=== PATIENT | male | born 1940 | race Caucasian/White ===

== ENCOUNTER 2021-11-21 14:09 | Outpatient (RCR) | payer MEDICARE, SELFPAY ==
[2021-11-21 15:09] LABS: Alanine Aminotransferase 20 U/L (6-50); Albumin Level 4.2 g/dL (3.5-5.1); Alkaline Phosphatase 76 U/L (38-126); Aspartate Amino Transferase 25 U/L (17-59); Bilirubin,Total 0.6 mg/dL (0.2-1.3)
== END 2022-02-19 23:59 | disposition home or self-care (01) ==
LOC: ANHLAB 14:09
PROVIDERS: PCP Internal Medicine; Visit Provider Dermatology
DX: Z51.81 Encounter for therapeutic drug level monitoring (principal); Z79.899 Other long term (current) drug therapy
CPT/HCPCS: 36415; 80076

== ENCOUNTER 2022-12-11 10:40 | Outpatient (CLI) | payer MEDICARE, SELFPAY ==
[2022-12-11 11:06] LABS: Basophils Absolute Auto 0.1 K/mm3 (0.0-0.1); Basophils Percent Auto 1.5 % (0.2-1.2); Eosinophils Absolute Auto 0.5 K/mm3 (0-0.3); Hematocrit 45.7 % (42.0-52.0); Hemoglobin 15.3 g/dL (14.0-18.0); Immature Granulocyte Absolute 0.01 K/mm3 (0.00-0.031); Immature Granulocyte Percent A 0.2 % (0-0.5); Lymphocytes Absolute Auto 1.37 K/mm3 (0.9-3.2); Lymphocytes Percent Auto 22.7 % (18.3-44.2); Mean Corpuscular HGB Conc 33.5 g/dl (32-36); Mean Corpuscular Hemoglobin 30.7 pg (26-34); Mean Corpuscular Volume 91.8 fl (80-100); Mean Platelet Volume 10.1 fl (7.4-10.4); Monocytes Absolute Auto 0.7 K/mm3 (0.1-0.6); Monocytes Percent Auto 11.1 % (2.6-8.5); Neutrophils Absolute Auto 3.4 K/mm3 (1.3-6.7); Neutrophils Percent Auto 55.5 % (45.5-73.1); Platelet Count Result 279 k/mm3 (150-375); Red Blood Count 4.98 M/mm3 (4.6-6.20); Red Cell Distribution Width 13.4 % (11.5-14.5)
[2022-12-11 11:23] LABS: Alanine Aminotransferase 17 U/L (6-50); Alkaline Phosphatase 60 U/L (38-126); Anion Gap 8 mmol/L (8-16); Aspartate Amino Transferase 25 U/L (17-59); Blood Urea Nitrogen 22 mg/dL (9-20); Calcium 8.5 mg/dL (8.4-10.2); Carbon Dioxide 24 mmol/L (22-30); Chloride 104 mmol/L (98-107); Cholesterol 104 mg/dL (0-200); Estimated Glomerular Filt Rate 58; Glucose 91 mg/dL (65-110); HDL Direct 31 mg/dL; Potassium 4.2 mmol/L (3.4-5.0); Sodium 136 mmol/L (137-145); Triglycerides 93 mg/dL (<150)
[2022-12-11 11:34] LABS: LDL Cholesterol Direct 58 mg/dL
[2022-12-11 11:36] LABS: Free T4 Free Thyroxine 1.31 ng/mL (0.78-2.19); Vitamin D 25 Hydroxy 38.8 ng/mL
[2022-12-11 11:52] LABS: Prostate Specific Antigen 4.9 ng/mL (< OR = 4.0); Thyroid Stimulating Hormone 0.247 uIU/mL (0.465-4.680)
[2022-12-11 12:32] LABS: Folic Acid > 20.0 ng/mL (2.76->20)
== END 2022-12-11 10:41 | disposition home or self-care (01) ==
LOC: ANHLAB 10:42
PROVIDERS: PCP Internal Medicine; Visit Provider Physician Assistant
DX: E78.5 Hyperlipidemia, unspecified (principal); Z12.5 Encounter for screening for malignant neoplasm of prostate; E03.9 Hypothyroidism, unspecified; E55.9 Vitamin D deficiency, unspecified; R53.83 Other fatigue
CPT/HCPCS: 36415; 80053; 80061; 82306; 82607; 82746; 84153; 84439; 84443; 85025; G0103

== ENCOUNTER 2023-06-03 15:12 | Outpatient (CLI) | payer MEDICARE, SELFPAY ==
--- NOTE | ~2023-06-03 | XR_ITS ---
EXAMINATION: XR foot LT min 3V, XR ankle LT 2V DATE: 06/03/2023 15:43 EXAMINATION: XR foot LT min 3V, XR ankle LT 2V DATE: 06/03/2023 15:43 INDICATION: Left foot pain TECHNIQUE: 1. Anteroposterior, mortise, additional oblique and lateral view of the left ankle were obtained. 2. Dorsoplantar, two oblique and lateral views of the left foot were obtained. COMPARISON: None. FINDINGS: Alignment of the foot and ankle is normal. No fracture. Polyarticular osteoarthritis, moderate severi ty at the first metatarsophalangeal joint and mild at the ankle and multiple additional joints in the mid and forefoot. Bunion with hypertrophic and prominent cystic change at the medial head of the fir st metatarsal. Small plantar calcaneal spur. Soft tissue swelling about the lateral malleolus and ove r the dorsum of the foot. No definitive ankle joint effusion. IMPRESSION: 1. 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 2. Bunion with cystic and hypertrophic change at the medial head of the first metatarsal. 2. Small plantar calcaneal spur. Reviewed, dictated and finalized at location A. IMPRESSION: 1. 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 2. Bunion with cystic and hypertrophic change at the medial head of the first m etatarsal. 2. Small plantar calcaneal spur.
[2023-06-03 16:14] LABS: Uric Acid 8.3 mg/dL (3.5-8.5)
== END 2023-06-03 15:13 | disposition home or self-care (01) ==
LOC: ANHLAB 15:15
PROVIDERS: PCP Internal Medicine; Visit Provider Internal Medicine
DX: M77.32 Calcaneal spur, left foot (principal); M19.072 Primary osteoarthritis, left ankle and foot
CPT/HCPCS: 36415; 73600; 73630; 84550

== ENCOUNTER 2023-06-05 11:56 | Emergency (ER) | payer MEDICARE, SELFPAY ==
--- NOTE | ~2023-06-05 | US_ITS ---
EXAMINATION: US venous doppler [facility] DATE: 06/05/2023 13:40 INDICATION: Left lower limb pain and swelling TECHNIQUE: Grayscale ultrasound images without and with compression and Doppler ultrasound images of the left lower extremity veins were obtained. COMPARISON: None. FINDINGS: The visualized portions of left common femoral vein, profunda (deep) femoral vein, femoral vein, popl iteal vein, peroneal veins, posterior tibial veins, gastrocnemius vein and greater saphenous vein out flow are patent. IMPRESSION: 1. No deep venous thrombosis in the left lower limb. Reviewed, dictated and finalized at location A.
[2023-06-05 12:04] VITALS: BP 134/71; PULSE 68; RESP 15; TEMP 36.3; O2SAT 98
--- NOTE | 2023-06-05 12:58 | ED.EXTPRO ---
HPI - Extremity Problem General Chief complaint: Extremity Problem,Nontraumatic Stated complaint: Foot cellulitis? Time Seen by Provider: 06/05/23 12:13 History of Present Illness HPI Narrative: 83-year-old male present to the emergency department for evaluation of redness and swelling and left foot pain. Patient reports that the symptoms started spontaneously on Thursday. Patient denies any falls or injuries. Patient states the pain is worsened with weight-bearing. Patient did have follow-up his primary care physician on Thursday and did have outpatient x-rays of foot and ankle. Patient states that symptoms have been improving since Thursday. Patient has no prior history of DVT or diabetes. Related Data Home Medications Medication Instructions Recorded Confirmed aspirin 81 mg tablet,delayed 81 mg PO DAILY 05/27/19 05/28/22 release (Adult Low Dose Aspirin) atorvastatin 20 mg tablet 20 mg PO DAILY 05/27/19 05/28/22 Allergies Allergy/AdvReac Type Severity Reaction Status Date / Time citalopram Allergy Mild constipation, Verified 06/05/23 12:[address] enalapril Allergy Mild Cough Verified 06/05/23 12:03 Review of Systems Review of Systems: All systems reviewed & are unremarkable except as noted in HPI and below PMFSH Family History Family History Mother Patient's mother is Cancer Father Patient's father is Other Family history of cardiovascular disease Family history of hearing loss Family history of obesity Social History Social History (Updated 05/28/22 @ 13:17 by Bartolo Kumar MA) Smoking packs per day: 2 Smoking cigarettes per day: 40.0 Years smoked: 40 Smoking pack-years: 80.00 Smoking status: Former smoker Tobacco type: cigarettes Second hand tobacco smoke exposure: No Smoking end date: 02/17/08 Alcohol intake: never Lack of Transportation: No Lack of Food: Never True Current Housing: I Have Housing Concerned About Future Housing: No Difficulty Paying Gas/Electric Bills: No Difficulty Paying for Meds: No Currently Unemployed: No Education: High School Diploma/GED Difficulty w/ Childcare or Family Care: No Exam Narrative: APPEARANCE: Well appearing, no pain, no distress, well-nourished. HEAD: normocephalic, atraumatic. EYES: PERRLA/EOMI, conjunctivae clear. NOSE: Normal no drainage EARS:TMS clear with good light reflex. THROAT: Pharynx clear, no exudate. NECK: Supple. No adenopathy, no masses. RESPIRATORY: Airway patent, respirations nonlabored. Clear to auscultation bilaterally, no rales, rhonchi, wheezing. CARDIOVASCULAR: Regular rate and rhythm without murmurs rubs or gallops. ABDOMINAL: Soft, nontender, nondistended, normal bowel sounds MUSCULOSKELETAL: Erythema and edema of left foot with no evidence of skin breakdown NEURO: Alert. Cranial nerves II through XII intact. Good gait. Good coordination SKIN: Warm, dry. Normal Color Course Course Emergency Course: Patient was treated for cellulitis Vital Signs Vital signs: Vital Signs Temperature 97.4 F L 06/05/23 12:04 Pulse Rate 68 06/05/23 12:04 Respiratory Rate 15 06/05/23 12:04 Blood Pressure 134/71 06/05/23 12:04 Pulse Oximetry 98 06/05/23 12:04 Oxygen Delivery Room Air 06/05/23 12:04 Temperature 97.4 F L 06/05/23 12:04 Pulse Rate 68 06/05/23 12:04 Respiratory Rate 15 06/05/23 12:04 Blood Pressure 134/71 06/05/23 12:04 Pulse Oximetry 98 06/05/23 12:04 Oxygen Delivery Room Air 06/05/23 12:04 MDM - Extremity (Nontraumatic) MDM Narrative Medical decision making narrative: 83-year-old male presenting to the ED for evaluation for swelling of his left foot. Ultrasound was ordered to evaluate for DVT. Patient reports he had x-rays of left foot and ankle on Thursday and showed arthritis but no fracture dislocation. Ultrasound was negative for DVT. Patient is being treated for a cellulitis. Patient will be started on Keflex. Patient was started on Keflex in the emergency department. Patient was encouraged to have close follow-up with his primary care physician. All questions concerns were addressed. Differential Diagnosis Differential diagnosis: Likely cellulitis, superficial thrombophlebitis, lower extremity edema and deep vein thrombosis of lower extremity Discharge Plan Discharge Clinical Impression: Cellulitis Patient Disposition: Home, Self-Care Condition: Stable Instructions: Antibiotic Form, Cellulitis (ED) Additional Instructions: Antibiotic as directed until completed. Have close follow-up with your primary care physician for wound check. If you have any worsening symptoms then please call or return to the emergency department. Prescriptions: New cephalexin 500 mg capsule 500 mg PO Q8H 7 Days Qty: 21 0RF No Action aspirin [Adult Low Dose Aspirin] 81 mg tablet,delayed release (DR/EC) 81 mg PO DAILY atorvastatin 20 mg tablet 20 mg PO DAILY omeprazole 20 mg capsule,delayed release(DR/EC) 20 mg PO DAILY Qty: 90 1RF Rx Instructions: Take before dinner felodipine 5 mg tablet extended release 24 hr 5 mg PO DAILY Qty: 90 1RF levothyroxine 137 mcg tablet 137 mcg PO DAILY Qty: 90 0RF Follow-up/Referrals: Ruddy Ramsey DO [Primary Care Provider] -
[2023-06-05] MEDS: CEPHALEXIN 500 MG CAPSULE PO (15:03)
== END 2023-06-05 15:11 | disposition home or self-care (01) ==
PROVIDERS: Emergency Provider Emergency Medicine; PCP Internal Medicine
DX: L03.116 Cellulitis of left lower limb (principal); Z79.82 Long term (current) use of aspirin; Z87.891 Personal history of nicotine dependence
CPT/HCPCS: 93971; 99284; A9270

== ENCOUNTER 2024-04-06 14:52 | Outpatient (CLI) | payer MEDICARE, SELFPAY ==
--- OUTSIDE RECORDS SUMMARY | 2024-04-06 15:01 | XMS_ITS | Referral Summary ---
Author Organization [facility] Address [address] [place] [address] Care Team Providers Care Source Inspector Name Role Phone Ruddy Ramsey MD Primary Care Provider [phone] Allergies No known active allergies Medications aspirin (ASPIR-81) 81 mg tablet take 1 tablet by oral route every day 0 0 7 Active felodipine (PLENDIL) 5 mg 24 hr tablet 0 Active omeprazole (PriLOSEC) 20 mg capsule TAKE 1 CAPSULE BY MOUTH DAILY BEFORE DINNER 2 Active Synthroid 137 mcg tablet Take 1 tablet (137 mcg total) by mouth oven worker before breakfast 4 Active atorvastatin (LIPITOR) 20 mg tabletIndicatio ns:Hyperlipidem ia LDL goal <70 TAKE 1 TABLET DAILY 90 tablet 3 4 Active Active Problems Problem Noted Date Diagnosed Date Other fatigue 10/14/2018 Obesity (BMI 35.0-39.9 without comorbidity) 03/19 Lipid screening 07/10/2017 Hyperlipidemia LDL goal <70 07/10/2017 Coronary artery disease of n ative artery of [place] heart with stable angina pectoris 09/05/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 09/05/2016 Simple obesity 06/27/2016 Overview (07/11/2016): Non morbid obesity due to excess calories Abnormal liver function tests 06/27/2016 Overview (07/11/2016): Elevated liver function tests Essential (primary) hypertension 06/27/2016 Overview (07/11/2016): Essential hypertension Social History Tobacco Use Types Packs/Day Years Used Date Smoking Tobacco: Former Smokeless Tobacco: Never Tobacco Cessation:Counseling Given: Not Answered Alcohol Use Standard Drinks/Week Comments No 0 (1 standard drink = 0.6 oz pur e alcohol) Personal Safety Answer Date Recorded Getting School Help Needed Not on file 03/06 Sex and Gender Information Value Date Recorded Sex Assigned at Not on file 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 Gender Identity Not on file Sexual Orientation Not on file Last Filed Vital Signs Vital Sign Reading Time Taken Comments Blood Pressure 130/78 09/07/2023 7:57 AM CDT Pulse 66 09/07/2023 7:57 AM CDT Temperature 36.4 C (97.5 F) 05/04/2020 12:50 PM CDT Respiratory Rate 15 12/21/2020 1:56 PM CDT Oxygen Saturation 96% 09/07/2023 7:57 AM CDT Inhaled Oxygen Concentration - - Weight 107 kg (236 lb) 09/07/2023 7:57 AM CDT Height 180.3 cm (5' 11 ) 09/07/2023 7:57 AM CDT Body Mass Index 32.92 09/07/2023 7:57 AM CDT Plan of Treatment Not on file Procedures Procedure Name Priority Date/Time Associated Diagnosis Comments CT ABDOMEN PELVIS W CONTRAST Routine 07/19/2016 6:55 PM CDT from Last 3 Months or Most Recently Relevant to Health Maintenance Results * CT Abdomen Pelvis W Contrast (07/19/2016 6:55 PM CDT) Anatomical Region Laterality Modality Body N/A Computed Tomogra phy 07/19/2016 6:55 PM CDT Narrative 07/19/2016 6:55 PM CDT DATE OF EXAM: Jul 19 2016 1:55PM Acc#: [id number] ECT 0365 - CT Abd/Pel W PO Contrast only DIAGNOSIS: ACUTE PANCREATITIS/ABDOMINAL PAIN CLINICAL HISTORY: no bowel movement times 4-5 days with hypoactive bowel sounds RESULT: EXAM: CT abdomen and pelvis without contrast DATE: 07/19/2016 1:55 PM CLINICAL HISTORY: Constipation with lack of bowel movement for 4 to 5 days TECHNIQUE: Computed tomographic images of the abdomen and pelvis were obtained in the axial plane without the administration of contrast. Coronal and sagittal reformatted images were performed. No prior study is available for comparison. FINDINGS: Small right and moderate left pleural effusions cause compressive atelectasis of the visible portions of the lung bases. A moderate pericardial effusion is present. Hypodense bilateral renal lesions are of water density, but cannot be characterized on this noncontrast exam. The liver, gallbladder, spleen, pancreas and adrenal glands are normal for a noncontrast exam. Stool is present in the ascending, transverse and descending colon. The sigmoid colon and rectum are decompressed. There is no bowel loop dilatation or bowel wall thickening. An appendix is is not deftly identified. There are no right lower quadrant inflammatory changes There is no free fluid or air. Atherosclerotic calcifications are present in the sanchez of the aorta and iliac arteries. There is no abdominal or pelvic adenopathy. The bladder is normal. The prostate is normal. A tiny fat-containing umbilical hernia is present. Multilevel degenerative disc disease in the visible portion of the spine is most severe in the mid and lower lumbar spine. IMPRESSION: 1. No evidence of bowel obstruction. 2. Hypodense bilateral renal lesions cannot be characterized on this noncontrast exam. 3. Small right and moderate left pleural effusions and moderate pericardial effusion. Electronically signed by: Sheri Gordon M.D. LINUX PROGRAMMER: [email or web address] TRANSCRIBE DATE/TIME: Jul 19 2016 4:25P RADIOLOGIST: SHERI GORDON M.D. READ ON: Jul 19 2016 4:29P ORDERING DR: MARGARITA SHEN M.D. THIS DOCUMENT HAS BEEN ELECTRONICALLY SIGNED BY: SHERI GORDON M.D. ON: Jul 19 2016 4:25P Attending: LASHAY CRUZ Requesting: MARGARITA SHEN Requesting Attending Attending ID: [id number] Requesting ID: [id number] Report To 1 ID: [id number] Report To 1 Name: LASHAY CRUZ Report To 1 FAX: [phone] Report To 2 ID: Report To 2 Name: , Report To 2 FAX: -- NextGen Order #: Procedure Note Miscellaneous, Not In File / Provider, MD Alicia - 07/19/2016 DATE OF EXAM: Jul 19 2016 1:55PM Acc#: [id number] ECT 0365 - CT Abd/Pel W PO Contrast only DIAGNOSIS: ACUTE PANCREATITIS/ABDOMINAL PAIN CLINICAL HISTORY: no bowel movement times 4-5 days with hypoactive bowel sounds RESULT: EXAM: CT abdomen and pelvis without contrast DATE: 07/19/2016 1:55 PM CLINICAL HISTORY: Constipation with lack of bowel movement for 4 to 5 days TECHNIQUE: Computed tomographic images of the abdomen and pelvis were obtained in the axial plane without the administration of contrast. Coronal and sagittal reformatted images were performed. No prior study is available for comparison. FINDINGS: Small right and moderate left pleural effusions cause compressive atelectasis of the visible portions of the lung bases. A moderate pericardial effusion is present. Hypodense bilateral renal lesions are of water density, but cannot be characterized on this noncontrast exam. The liver, gallbladder, spleen, pancreas and adrenal glands are normal for a noncontrast exam. Stool is present in the ascending, transverse and descending colon. The sigmoid colon and rectum are decompressed. There is no bowel loop dilatation or bowel wall thickening. An appendix is is not deftly identified. There are no right lower quadrant inflammatory changes There is no free fluid or air. Atherosclerotic calcifications are present in the sanchez of the aorta and iliac arteries. There is no abdominal or pelvic adenopathy. The bladder is normal. The prostate is normal. A tiny fat-containing umbilical hernia is present. Multilevel degenerative disc disease in the visible portion of the spine is most severe in the mid and lower lumbar spine. IMPRESSION: 1. No evidence of bowel obstruction. 2. Hypodense bilateral renal lesions cannot be characterized on this noncontrast exam. 3. Small right and moderate left pleural effusions and moderate pericardial effusion. Electronically signed by: Sheri Gordon M.D. LINUX PROGRAMMER: [email or web address] TRANSCRIBE DATE/TIME: Jul 19 2016 4:25P RADIOLOGIST: SHERI GORDON M.D. READ ON: Jul 19 2016 4:29P ORDERING DR: MARGARITA SHEN M.D. THIS DOCUMENT HAS BEEN ELECTRONICALLY SIGNED BY: SHERI GORDON M.D. ON: Jul 19 2016 4:25P Attending: LASHAY CRUZ Requesting: MARGARITA SHEN Requesting Attending Attending ID: [id number] Requesting ID: [id number] Report To 1 ID: [id number] Report To 1 Name: ROSSY SWANN PAMLASHAY Report To 1 FAX: [phone] Report To 2 ID: Report To 2 Name: , Report To 2 FAX: -- NextGen Order #: us Not In File Miscellaneous IMG CT PROCEDURES Ellen l Result from Last 3 Months or Most Recently Relevant to Health Maintenance Insurance MEDICARE [facility] SENIOR SUPPLEMENT MEDICARE [facility] MEDICARE [employer] SENIOR SUPPLEMENT Care Teams Source Inspector Relationship Specialty Start Date End Date Ruddy Ramsey MD [address] [facility] [address] [place] [id number] PCP - General 08/11/12
--- OUTSIDE RECORDS SUMMARY | 2024-04-06 15:01 | XMS_ITS | Encounter Summary ---
Author Organization [facility] Address [address] [address] Care Team Providers Care Belt Machine Operator Name Role Phone Ruddy Ramsey MD Primary Care Provider [phone]- [phone] Encounter Details Date Type Department Care Team (Late st Contact Info) Description 06/27/2016 Orders Only [facility] ProviderAlicia MD [address] [place] [address] Social History Tobacco Use Types Packs/Day Years Used Date Smoking Tobacco: Former Cigarettes Q uit: 02/16/2007 Alcohol Use Standard Drinks/Week Comments No 0 (1 standard drink = 0.6 oz pur e alcohol) Sex and Gender Information Value Date Recorded Sex Assigned at Not on file 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 Historical Provider [facility] GABRIEL MAYER Final Result documented in this encounter Visit Diagnoses Not on filedocumented in this encounter Care Teams Belt Machine Operator Relationship Specialty Start Date End Date Ruddy Ramsey MD [address] [place], [place] [id number] PCP - General 08/11/12 documented as of this encounter
--- OUTSIDE RECORDS SUMMARY | 2024-04-06 15:01 | XMS_ITS | Referral Summary ---
Author Organization [facility] Address [address] [place] [address] Care Team Providers Care Caseworker Intake Name Role Phone Unavailable Primary Care Provider Unavailabl e Source Comments [facility],non-owned Affiliates and Associated Physician Practices is amultiple site organization consisting of ambulatory clinics and hospital sitesin [place], [place], [place] and [place]. This disclosure is being madepursuant to the Care Everywhere program and may not contain all information available regarding this patient. Last updated 17.[facility] Medications * Be aware that medications may not be up to date on this document. Alwaysverify current medications with the patient. Medication Sig Dispensed Refills Start Date End Date Status ergocalciferol (DRISDOL) 62622 UNITS capsule Take 50,000 Units by mouth every 30 days. 06/27/2016 Active pantoprazole (PROTONIX) 40 MG packet 40 mg by Feeding route DAILY. 06/27/2016 Active felodipine CR 24hr (PLENDIL) 5 MG tablet Take 5 mg by mouth DAILY. 06/27/2016 Active aspirin (ASPIRIN) 81 MG chew tablet Take 81 mg by mouth DAILY. 06/27/2016 Active levothyroxine (SYNTHROID) 150 MCG tablet Take 150 mcg by mouth DAILY. 06/27/2016 Active Social History Tobacco Use Types Packs/Day Years Used Date Smoking Tobacco: Never Assessed Sex and Gender Information Value Date Recorded Sex Assigned at Not on file Gender Identity Not on file Sexual Orientation Not on file Last Filed Vital Signs Vital Sign Reading Time Taken Comments Blood Pressure 131/113 06/28/2016 12:30 AM CDT Pulse 56 06/28/2016 12:30 AM CDT Temperature 36.6 C (97.9 F) 06/27/2016 4:57 PM CDT Respiratory Rate 15 06/28/2016 12:30 AM CDT Oxygen Saturation 100% 06/28/2016 12:30 AM CDT Inhaled Oxygen Concentration - - Weight 122.5 kg (270 lb) 06/27/2016 4:57 PM CDT Height 180.3 cm (5' 11 ) 06/27/2016 4:57 PM CDT Body Mass Index 37.66 06/27/2016 4:57 PM CDT Plan of Treatment Not on file
--- OUTSIDE RECORDS SUMMARY | 2024-04-06 15:01 | XMS_ITS | Patient Health Summary ---
Author Organization [facility] Address [address] [place] [address] Care Team Providers Care Maintenance Manager Name Role Phone Unavailable Primary Care Provider Unavailabl e Note from [facility],non-owned Affiliates and Associated Physician Practices is amultiple site organization consisting of ambulatory clinics and hospital sitesin [place], [place], [place] and [place]. This disclosure is being madepursuant to the Care Everywhere program and may not contain all information available regarding this patient. Last updated 17.[facility] Medications * Be aware that medications may not be up to date on this document. Alwaysverify current medications with the patient. * ergocalciferol (DRISDOL) 29287 UNITS capsule(Started 06/27/2016) Take 50,000 Units by mouth every 30 days. * pantoprazole (PROTONIX) 40 MG packet(Started 06/27/2016) 40 mg by Feeding route DAILY. * felodipine CR 24hr (PLENDIL) 5 MG tablet(Started 06/27/2016) Take 5 mg by mouth DAILY. * aspirin (ASPIRIN) 81 MG chew tablet(Started 06/27/2016) Take 81 mg by mouth DAILY. * levothyroxine (SYNTHROID) 150 MCG tablet(Started 06/27/2016) Take 150 mcg by mouth DAILY. Social History Tobacco Use Types Packs/Day Years [...] Mass Index 37.66 06/27/2016 4:57 PM CDT Procedures * CT ABDOMEN PELVIS W CONTRAST(Performed 06/27/2016) * URINALYSIS REFLEX TO MICROSCOPIC NO CULTURE(Performed 06/27/2016) * PTT [facility](Performed 06/27/2016) * PT-INR [facility](Performed 06/27/2016) * TROPONIN I(Performed 06/27/2016) * COMPREHENSIVE METABOLIC PANEL(Performed 06/27/2016) * CBC W AUTO DIFFERENTIAL(Performed 06/27/2016) * CBC W AUTO DIFFERENTIAL(Performed 06/27/2016) * EKG 12-LEAD(Performed 06/27/2016) Results * CT ABDOMEN PELVIS W CONTRAST (06/27/2016 10:41 PM CDT) Anatomical Region Laterality Modality Abdomen, Pelvis Other Impressions 06/28/2016 8:49 AM CDT IMPRESSION: 1. No acute process to explain the patient's symptoms. 2. Small hiatal hernia. 3. Cardiomegaly. 4. Minimal sigmoid diverticulosis without acute diverticulitis. Dictated by Alma Delia Jesus MD (president). I, Dr. CECI KAY M.D. have personally reviewed and interpreted this examination/study. This report was electronically signed by CECI KAY M.D. on 06/28/2016 8:49 AM . Narrative 06/28/2016 8:49 AM CDT EXAMINATION: Computed tomography (CT) of the abdomen and pelvis with contrast HISTORY: Elevated liver enzymes and intermittent abdominal pain. TECHNIQUE: CT of the abdomen and pelvis was performed following the uneventful administration of 100 mL of Omnipaque 350 intravenous contrast according to standard protocol. COMPARISON: No prior study is available for comparison. FINDINGS: The aorta is normal in course and caliber. The coronary arteries and aorta are atherosclerotic. The heart is mildly enlarged without pericardial effusion. The liver enhances homogenously. The gallbladder is decompressed. The intrahepatic and extrahepatic bile ducts are nondilated. The spleen enhances homogenously without focal lesion. The pancreas and adrenal glands are normal. Multiple bilateral renal cysts are seen with the largest measuring 3.2 cm on the left. The kidneys otherwise enhance symmetrically. There is no evidence of renal calculus or hydronephrosis. Small hiatal hernia is seen. Oral contrast opacifies the stomach and multiple loops of small bowel. The distal esophagus and stomach appear otherwise normal. There is minimal sigmoid diverticulosis without evidence of diverticulitis. Otherwise the small bowel and large bowel are normal in caliber without evidence of wall thickening or obstruction. The appendix is not seen; however, no inflammatory changes are seen in the right lower quadrant. No free air or free fluid is identified within the abdomen. There is no abdominal lymphadenopathy. Atherosclerosis is noted. The urinary bladder is distended with fluid and appears normal. The prostate is normal. No free fluid is seen within the pelvis. There is no pelvic lymphadenopathy. Bone windows demonstrate no suspicious lytic or blastic lesions. The visible osseous structures are intact. Multilevel degenerative changes are noted in the spine, most pronounced in the lumbar spine. Procedure Note Ceci Kay MD - 05/15/2017 EXAMINATION: Computed tomography (CT) of the abdomen and pelvis withcontrast HISTORY: Elevated liver enzymes and intermittent abdominal pain. TECHNIQUE: CT of the abdomen and pelvis was performed following theuneventful administration of 100 mL of Omnipaque 350 intravenous contrastaccording to standard protocol. COMPARISON: No prior study is available for comparison. FINDINGS: The aorta is normal in course and caliber. The coronary arteries and aortaare atherosclerotic. The heart is mildly enlarged without pericardial effusion. The liver enhances homogenously. The gallbladder is decompressed. Theintrahepatic and extrahepatic bile ducts are nondilated. The spleenenhances homogenously without focal lesion. The pancreas and adrenalglands are normal. Multiple bilateral renal cysts are seen with the largest measuring 3.2 cm on the left. The kidneysotherwise enhance symmetrically. There is no evidence of renal calculus orhydronephrosis. Small hiatal hernia is seen. Oral contrast opacifies the stomach andmultiple loops of small bowel. The distal esophagus and stomach appearotherwise normal. There is minimal sigmoid diverticulosis without evidenceof diverticulitis. Otherwise the small bowel and large bowel are normal in caliber without evidence of wallthickening or obstruction. The appendix is not seen; however, noinflammatory changes are seen in the right lower quadrant. No free air orfree fluid is identified within the abdomen. There is no abdominal lymphadenopathy. Atherosclerosis is noted. The urinary bladder is distended with fluid and appears normal. Theprostate is normal. No free fluid is seen within the pelvis. There is nopelvic lymphadenopathy. Bone windows demonstrate no suspicious lytic or blastic lesions. Thevisible osseous structures are intact. Multilevel degenerative changes arenoted in the spine, most pronounced in the lumbar spine. IMPRESSION IMPRESSION: 1. No acute process to explain the patient's symptoms. 2. Small hiatal hernia. 3. Cardiomegaly. 4. Minimal sigmoid diverticulosis without acute diverticulitis. Dictated by Alma Delia Jesus MD (president). I, Dr. CECI KAY M.D. have personally reviewed and interpreted thisexamination/study. This report was electronically signed by CECI KAY M.D. on 06/28/20168:49 AM . Ximena Johnson MD CT ORDERABLES * (ABNORMAL) URINALYSIS REFLEX TO MICROSCOPIC NO CULTURE (06/27/2016 8:51 PM CDT) Color UA Eleonora(A) Straw, Yellow, Colorless, Light Yellow [facility] Clarity UA Clear Clear [facility] Specific Destrehan UA 1.019 1.001 - 1.030 [facility] pH UA 5.0 5.0 - 8.0 [facility] Protein UA 20 <=20 mg/dL [facility] Glucose UA Negative Negative mg/dL [facility] Ketone UA Negative Negative mg/dL [facility] Bilirubin UA Negative Negative mg/dL [facility] Blood UA Negative Negative [facility] Nitrite UA Negative Negative [facility] Leukocyte Esterase Negative Negative [facility] Urobilinogen UA <2.0 <2.0 mg/dL [facility] RBC UA 1 0 - 8 /HPF [facility] WBC UA 1 0 - 2 /HPF [facility] Bacteria UA Occasional Rare, Occasional, None /HPF [facility] Mucus UA Moderate(A) None /LPF [facility] Urine specimen (specimen) 06/27/2016 8:51 PM CDT 06/27/2016 8:55 PM CDT Ximena Johnson MD LAB - URINALYSIS ORD ERABLES Performing Organization Address [facility] Co de Phone Number [address] [phone] * PTT U (06/27/2016 8:32 PM CDT) APTT 32.3 23.0 - 38.4 Seconds [facility] Comment:Suggested therapeuti c range for full dose I.V. heparin therapy for venous thromboembolism is 66.0-91.0 seconds. Blood specimen (specimen) BLOOD SPECIMEN / Unknown 06/27/2016 8:32 PM CDT 06/27/2016 8:55 PM CDT Narrative [facility] - 06/27/2016 9:18 PM CDT Please ensure that the aPTT specimen is received in the clinical lab within 1 hour of collection if it is used for therapeutic heparin monitoring. Processing of heparinized specimens older than 1 hour may result in inaccurate test results. Is patient on Heparin, Argatroban or Dabigatran?->N Ximena Johnson MD LAB - COAGULATION OR DERABLES Performing Organization Address [facility] Co de Phone Number [address] [phone] * PT-INR U (06/27/2016 8:32 PM CDT) PT 12.8 12.1 - 14.8 Seconds [facility] INR 1.0 See Comment [facility] Comment: Suggested therapeutic range for low-intensity coumadin therapy for venous thromboembolism prophylaxis is an INR of 2.0-3.0. For high risk patients (Mitral Valve Prosthesis, Atrial Fibrillation, history of TIA/stroke), suggested prophylactic therapeutic range is an INR of 2.5-3.5. Blood specimen (specimen) BLOOD SPECIMEN / Unknown 06/27/2016 8:32 PM CDT 06/27/2016 8:55 PM CDT Narrative [facility] - 06/27/2016 9:17 PM CDT Is patient on Heparin, Argatroban or Dabigatran?->N Ximena Johnson MD LAB - COAGULATION OR DERABLES [address] [phone] * TROPONIN I (06/27/2016 8:08 PM CDT) Troponin I 0.013 <0.032 ng/mL [facility] Blood specimen (specimen) BLOOD SPECIMEN / Unknown 06/27/2016 8:08 PM CDT 06/27/2016 8:11 PM CDT Neri Hancock MD LAB - CHEMISTRY SHILPA BUENO Performing Organization Address City/[facility]/ZIP Co de Phone Number [address] [phone] * (ABNORMAL) CBC W AUTO DIFFERENTIAL (06/27/2016 8:08 PM CDT) Only the most recent of2 resultswithin the time period is included. WBC 8.3 3.5 - 10.5 10 3/uL [facility] RBC 5.13 4.30 - 5.70 10 6/uL [facility] Hemoglobin 15.3 13.5 - 17.5 g/dL [facility] Hematocrit 44.6 39.0 - 50.0 % [facility] MCV 86.9 81.0 - 97.0 fL [facility] MCH 29.8 28.0 - 34.0 pg [facility] MCHC 34.3 32.0 - 36.0 g/dL [facility] Platelet Count 355 150 - 400 10 3/uL [facility] RDW-SD 45.0 36.0 - 50.0 fL [facility] RDW-CV 14.2 11.2 - 14.8 % [facility] MPV 9.7 9.3 - 12.8 fL [facility] nRBC Absolute 0.00 0 10 3/uL [facility] nRBC Auto 0.0 0 /100 WBC [facility] Neutrophils % 61.5 35.0 - 70.0 % [facility] Lymphocytes % 21.7 19.7 - 55.1 % [facility] Monocytes % 11.4 3.0 - 15.0 % [facility] Eosinophils % 4.6 0.0 - 6.0 % [facility] Basophil % 0.8 0.0 - 1.5 % [facility] Neutrophils Absolute 5.1 1.6 - 7.0 10 3/uL [facility] Lymphocyte Absolute 1.8 0.8 - 2.9 10 3/uL [facility] Monocytes Absolute 0.95(H) 0.14 - 0.66 10 3/uL [facility] Eosinophils Absolute 0.38(H) 0.00 - 0.22 10 3/uL [facility] Basophils Absolute 0.07(H) 0.00 - 0.06 10 3/uL [facility] Immature Granulocytes % 0.2 0.0 - 1.0 % [facility] Blood specimen (specimen) BLOOD SPECIMEN / Unknown 06/27/2016 8:08 PM CDT 06/27/2016 8:11 PM CDT Neri Hancock MD LAB - HEMATOLOGY ORD ERABLES [facility] [address] [phone] * (ABNORMAL) COMPREHENSIVE METABOLIC PANEL (06/27/2016 8:08 PM CDT) BUN 33(H) 7 - 26 mg/dL [facility] Creatinine 1.4(H) 0.6 - 1.2 mg/dL [facility] Sodium 137 136 - 145 mmol/L [facility] Potassium 4.9(H) 3.5 - 4.5 mmol/L [facility] Chloride 106 98 - 107 mmol/L [facility] CO2 20(L) 22 - 29 mmol/L [facility] Glucose 103 70 - 115 mg/dL [facility] Calcium 9.5 8.4 - 10.2 mg/dL [facility] Protein Total 7.5 6.0 - 8.3 g/dL [facility] Albumin 3.6 3.4 - 5.0 g/dL [facility] Bilirubin Total 2.1(H) 0.2 - 1.2 mg/dL [facility] Alkaline Phosphatase 269(H) 40 - 150 Units/L [facility] ALT 373(H) 0 - 55 Units/L [facility] AST 200(H) 5 - 34 Units/L [facility] Anion Gap 16 8 - 18 [facility] BUN/Creatinine Ratio 24(H) 7 - 23 [facility] Osmolality Calculated 292 270 - 300 mOsm/kg [facility] Albumin/Globulin Ratio 0.9(L) 1.1 - 2.3 [facility] eGFR 50(L) >60 mL/min/1.7 3 m2 [facility] Blood specimen (specimen) BLOOD SPECIMEN / Unknown 06/27/2016 8:08 PM CDT 06/27/2016 8:11 PM CDT Neri Hancock MD LAB - CHEMISTRY ORDLoc [facility] Performing Organization Address [facility] Co de Phone Number [address] [phone] * EKG 12-LEAD (06/27/2016 12:00 AM CDT) EKG [facility] Comment: Exam Date/Time: Jun 27 2016 20:11:25 Test Reason : HX chest pain, age and abnormal labs Blood Pressure : / mmHG Vent. Rate : 056 BPM Atrial Rate : 056 BPM P-R Int : 176 ms QRS Dur : 098 ms QT Int : 434 ms P-R-T Axes : 017 -40 001 degrees QTc Int : 418 ms Sinus bradycardia Left axis deviation Possible Lateral infarct , age undetermined Inferior infarct , age undetermined Abnormal ECG No previous ECGs available Confirmed by Cullen Pagan, LAwa ([id number]), video effects editor JOSE ROMAN ([id number]) on 07/15/2016 4:35:41 PM Referred By: REFERRING NO Confirmed By:Natasha Pagan M.D. 06/27/2016 Neri Hancock MD ECG ORDERABLES Performing Organization Address [facility] Co de Phone Number [facility]
--- OUTSIDE RECORDS SUMMARY | 2024-04-06 15:01 | XMS_ITS | Encounter Summary ---
Author Organization [facility] Address [address] [address] Care Team Providers Care Phone Screener Name Role Phone Ruddy Ramsey MD Primary Care Provider [phone]- [phone] Encounter Details Date Type Department Care Team (Late st Contact Info) Description 06/24/2016 Orders Only [facility] ProviderAlicia MD [address] [place] [address] Social History Tobacco Use Types Packs/Day Years Used Date Smoking Tobacco: Former Cigarettes Q uit: 02/17/2008 Alcohol Use Standard Drinks/Week Comments No 0 (1 standard drink = 0.6 oz pur e alcohol) Sex and Gender Information Value Date Recorded Sex Assigned at Not on file 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 us Historical Provider [facility] GABRIEL MAYER Final Result documented in this encounter Visit Diagnoses Not on filedocumented in this encounter Care Teams Phone Screener Relationship Specialty Start Date End Date Ruddy Ramsey MD [address] [place], [place] [id number] PCP - General 08/11/12 documented as of this encounter
--- OUTSIDE RECORDS SUMMARY | 2024-04-06 15:01 | XMS_ITS | Clinical Summary ---
Author Organization [facility] Address [address] [place] [address] Care Team Providers Care Computer Teacher Name Role Phone Ruddy Ramsey MD Primary Care Provider [phone]- [phone] Allergies No known active allergies Medications aspirin (ASPIR-81) 81 mg tablet take 1 tablet by oral route every day 0 0 7 Active felodipine (PLENDIL) 5 mg 24 hr tablet 0 Active omeprazole (PriLOSEC) 20 mg capsule TAKE 1 CAPSULE BY MOUTH DAILY BEFORE DINNER 2 Active Synthroid 137 mcg tablet Take 1 tablet (137 mcg total) by mouth licensing representative before breakfast 4 Active atorvastatin (LIPITOR) 20 mg tabletIndicatio ns:Hyperlipidem ia LDL goal <70 TAKE 1 TABLET DAILY 90 tablet 3 4 Active Active Problems Problem Noted Date Diagnosed Date Other fatigue 10/14/2018 Obesity (BMI 35.0-39.9 without comorbidity) 03/19 Lipid screening 07/10/2017 Hyperlipidemia LDL goal <70 07/10/2017 Coronary artery disease of n ative artery of [place] heart with stable angina pectoris 09/05/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 09/05/2016 Simple obesity 06/27/2016 Overview (07/11/2016): Non morbid obesity due to excess calories Abnormal liver function tests 06/27/2016 Overview (07/11/2016): Elevated liver function tests Essential (primary) hypertension 06/27/2016 Overview (07/11/2016): Essential hypertension Medical History Medical History Date Comments Hx Other Medical excessive calci um levels Hypertension Hypertension Coronary artery disease invo [place]ving [place] coronary artery of [place] heart without angina pectoris 09/05/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 09/05/2016 Family History Medical History Relation Name Comments Heart attack Other Family history of Myocardial infarction; Relation Name Status Comments Father Mother Other Social History Tobacco Use Types Packs/Day Years [...] on file 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 Gender Identity Not on file Sexual Orientation Not on file Obstetrics History Last Filed Vital Signs Vital Sign Reading [...] 09/07/2023 7:57 AM CDT Plan of Treatment Health Maintenance Due Date Last Done Comments Depression Screening 1940 Pneumococcal vaccine 65+ (1 of 2 - PCV) 1948 DTaP/Tdap/Td Vaccine (1 - Tdap) 1953 Zoster Vaccine (1 of 2) 1992 Well Visit 65+ 2007 Fall Risk Assessment 12/21/2021 12/21/2020, 10/28/2019, 04/21/2019 Influenza Vaccine (#1) 2023 9, 11/20/2017, 10/08/2016, Additional history exists Abdominal Aortic Aneurysm (A AA) Screen Completed 07/19/2016, 06/27/2016 Procedures Procedure Name Priority Date/Time Associated Diagnosis [...] DATE OF EXAM: Jul 19 2016 1:55PM [facility]#: [id number] ECT 0365 - CT Abd/Pel W PO [...] effusion. Electronically signed by: Sheri Gordon M.D. CAMERA REPAIR TECHNICIAN: PSC TRANSCRIBE DATE/TIME: Jul 19 2016 4:25P RADIOLOGIST: SHERI GORDON M.D. READ ON: Jul 19 2016 4:29P ORDERING DR: MARGARITA SHEN M.D. THIS DOCUMENT HAS BEEN ELECTRONICALLY SIGNED BY: SHERI GORDON M.D. ON: Jul 19 2016 4:25P Attending: LASHAY CRUZ Requesting: MARGARITA SHEN Requesting Attending Attending ID: [id number] Requesting ID: [id number] Report To 1 ID: [id number] Report To 1 Name: LASHAY CRUZ Report To 1 FAX: [phone] Report To 2 ID: Report To 2 Name: , Report To 2 FAX: -- NextGen Order #: Procedure Note Miscellaneous, Not In File / Provider, MD Alicia - 07/19/2016 DATE OF EXAM: Jul 19 2016 1:55PM Acc#: [id number] ECT 0365 - CT Abd/Pel W PO [...] effusion. Electronically signed by: Sheri Gordon M.D. CAMERA REPAIR TECHNICIAN: PSC TRANSCRIBE DATE/TIME: Jul 19 2016 4:25P RADIOLOGIST: SHERI GORDON M.D. READ ON: Jul 19 2016 4:29P ORDERING DR: MARGARITA SHEN M.D. THIS DOCUMENT HAS BEEN ELECTRONICALLY SIGNED BY: SHERI GORDON M.D. ON: Jul 19 2016 4:25P Attending: LASHAY CRUZ Requesting: MARGARITA SHEN Requesting Attending Attending ID: [id number] Requesting ID: [id number] Report To 1 ID: [id number] Report To 1 Name: LASHAY CRUZ Report To 1 FAX: [phone] Report To 2 ID: Report To 2 Name: , Report To 2 FAX: -- NextGen Order #: us Not In File Miscellaneous IMG CT PROCEDURES Ellen l Result from Last 3 Months or Most Recently Relevant to Health Maintenance Insurance MEDICARE [place] [id number] [facility] MEDICARE AETNA SENIOR SUPPLEMENT Care Teams Computer Teacher Relationship Specialty Start Date End Date Ruddy Ramsey MD [address] [facility] [address] [place] [address] PCP - General 08/11/12
--- OUTSIDE RECORDS SUMMARY | 2024-04-06 15:01 | XMS_ITS | Encounter Summary ---
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 Historical Provider [facility] PROCE DURES Final Result * CARDIOLOGY REPORT (04/23/2012) Anatomical Region Laterality Modality Other Narrative 04/23/2012 Ordered by an unspecified provider. Historical Provider [facility] PROCE DURES Final Result documented in this encounter Visit Diagnoses Not on filedocumented in this encounter Care Teams Real Estate Agency Licensee Relationship Specialty Start Date End Date Ruddy Ramsey MD [address] [place] [address] PCP - General 08/11/12 documented as of this encounter
--- OUTSIDE RECORDS SUMMARY | 2024-04-06 15:01 | XMS_ITS | Clinical Summary ---
Author Organization [facility] Address [address] [address] Care Team Providers Care Blocking Machine Operator Name Role Phone Unavailable Primary Care Provider Unavailabl e Source Comments [facility],non-owned Affiliates and Associated Physician Practices is amultiple site organization consisting of ambulatory clinics and hospital sitesin [place], [place] and [place]. This disclosure is being madepursuant to the Care Everywhere program and may not contain all information available regarding this patient. Last updated 17.[facility] Medications * Be aware that medications may not be up to date on this document. Alwaysverify current medications with the patient. Medication Sig Dispensed Refills Start Date End Date Status ergocalciferol (DRISDOL) 19217 UNITS capsule Take 50,000 Units by mouth [...] 06/27/2016 4:57 PM CDT Plan of Treatment Health Maintenance Due Date Last Done Comments MEDICARE AWV 12 MONTHS 1942 DTAP/TDAP/TD VACCINES (1 - Tdap) 1961 PNEUMOCOCCAL VACCINE 50+ (1 of 1 - PCV) 1992 ZOSTER VACCINE (1 of 2) 1992 Respiratory Syncytial Virus (RSV) Vaccine Pt: or over 60 yrs (1 - 1-dose 75+ series) 2017 COVID-19 VACCINE ( - 2023-2 5 season) 2023 INFLUENZA VACCINE (#1) 2023 DEPRESSION SCREENING 02/17/2024 HEPATITIS B VACCINE Aged Out No longe r eligible based on patient's age to complete this topic HIB VACCINE Aged Out No longer eligi ble based on patient's age to complete this topic HPV VACCINE Aged Out No longer eligi ble based on patient's age to complete this topic MENINGOCOCCAL (Group B) VACCINE Aged Out No longer eligible based on patient's age to complete this topic MENINGOCOCCAL VACCINE Aged Out No patience min eligible based on patient's age to complete this topic
[2024-04-06 15:37] LABS: Alanine Aminotransferase 16 U/L (6-50); Albumin Level 3.9 g/dL (3.5-5.1); Alkaline Phosphatase 81 U/L (38-126); Anion Gap 8 mmol/L (4-12); Aspartate Amino Transferase 23 U/L (17-59); Bilirubin,Total 0.7 mg/dL (0.2-1.3); Blood Urea Nitrogen 26 mg/dL (9-20); Calcium 8.6 mg/dL (8.4-10.2); Carbon Dioxide 24 mmol/L (22-30); Chloride 104 mmol/L (98-107); Cholesterol 101 mg/dL (0-200); Estimated Glomerular Filt Rate 57; Glucose 89 mg/dL (65-110); HDL Direct 40 mg/dL; Potassium 4.4 mmol/L (3.4-5.0); Sodium 136 mmol/L (137-145); Triglycerides 72 mg/dL (<150)
[2024-04-06 15:48] LABS: LDL Cholesterol Direct 45 mg/dL
[2024-04-06 16:06] LABS: Prostate Specific Antigen 7.5 ng/mL (< OR = 4.0); Thyroid Stimulating Hormone 0.934 uIU/mL (0.465-4.680)
[2024-04-06 16:09] LABS: Vitamin D 25 Hydroxy 32.7 ng/mL
== END 2024-04-06 14:53 | disposition home or self-care (01) ==
LOC: ANHLAB 14:58
PROVIDERS: PCP Internal Medicine; Visit Provider Internal Medicine
DX: R97.20 Elevated prostate specific antigen [PSA] (principal); I10 Essential (primary) hypertension; E78.5 Hyperlipidemia, unspecified; E03.9 Hypothyroidism, unspecified; E55.9 Vitamin D deficiency, unspecified
CPT/HCPCS: 36415; 80053; 80061; 82306; 84153; 84443

== ENCOUNTER 2024-10-14 08:59 | Outpatient (CLI) | payer MEDICARE, SELFPAY ==
--- OUTSIDE RECORDS SUMMARY | 2002-04-05 10:00 | XMS_ITS | Continuity of Care Document ---
Author Organization [facility] Address [address] [place] [address] [place] [address] Phone Care Team Providers Care Production Coordinator Name Role Phone Gabriele Nguyen DO Unavailable Unavailable Advance Directives Directive Yes / No Effective Date File Name No Information Encounters Encounter Description Practice Location Reason(s) For Visit Diagnoses Date Provider Providers Copied on Encounter [facility], [address], [place], [place], [id number], [place] tel:[phone] [facility] [facility] [place] No Information Patrick Mandujano. [address] [facility], [place], [address], [place]. tel:[phone] Family History Family Member Type Diagnosis Age At Onset No Information Payers Payer name Insurance type Covered democrat ID Authoriza tion(s) No Information Social History Type Description Quantity Date Captured Comments Sex Male Smoking Status No Information Chief Complaint And Reason For Visit No Information Reason For Referral Reason For Referral No Information History Of Present Illness Encounter Date Complaint History Of Prese nt Illness No Information Functional Status Date Functional Assessmen t No Information Instructions Date Instruction Additional Infor mation No Information Assessments Type Assessment Date No Information Patient Care Teams Name Effective Dates (start - stop) Status Members No Information
--- OUTSIDE RECORDS SUMMARY | 2024-10-14 09:13 | XMS_ITS | Encounter Summary ---
Author Organization [facility] Address [address] [facility] [address] [place] [address] Care Team Providers Care Diabetes Solutions Specialist Name Role Phone Ruddy Ramsey MD Primary Care Provider [phone] Meliton Cruz DO Primary Care Provider Encounter Details Date Type Department Care Team (Late st Contact Info) Description 06/24/2016 Orders Only [facility] ProviderAlicia [place] [address] Social History Tobacco Use Types Packs/Day Years Used Date Smoking Tobacco: Former Cigarettes Q uit: 02/17/2008 Alcohol Use Standard Drinks/Week Comments No 0 (1 standard drink = 0.6 oz pur e alcohol) Sex and Gender Information Value Date Recorded Sex Assigned at Not on file 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 Historical Provider [facility] GABRIEL MAYER Final Result documented in this encounter Visit Diagnoses Not on filedocumented in this encounter Care Teams Diabetes Solutions Specialist Relationship Specialty Start Date End Date Ruddy Ramsey MD [address] [place] [address] PCP - General 08/11/12 09/19/24 Meliton Cruz DO [address] [address] PCP - General Internal Medicine 09/20/24 documented as of this encounter
--- OUTSIDE RECORDS SUMMARY | 2024-10-14 09:13 | XMS_ITS | Encounter Summary ---
Author Organization [facility] Address [address] [facility] [address] [place] [address] Care Team Providers Care Leather Drier Name Role Phone Ruddy Ramsey MD Primary Care Provider [phone] Meliton Cruz DO Primary Care Provider Encounter Details Date Type Department Care Team (Late st Contact Info) Description 06/27/2016 Orders Only [facility] ProviderAlicia MD [facility] [place] [address] Social History Tobacco Use Types Packs/Day Years Used Date Smoking Tobacco: Former Cigarettes Q uit: 02/16/2007 Alcohol Use Standard Drinks/Week Comments No 0 (1 standard drink = 0.6 oz pur e alcohol) Sex and Gender Information Value Date Recorded Sex Assigned at Not on file 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
--- OUTSIDE RECORDS SUMMARY | 2024-10-14 09:13 | XMS_ITS | Encounter Summary ---
Author Organization [facility] Address [address] [facility] [address] [place] [address] Care Team Providers Care Land Development Manager Name Role Phone Ruddy Ramsey MD Primary Care Provider [phone] Meliton Cruz DO Primary Care Provider [phone] Encounter Details Date Type Department Care Team (Late st Contact Info) Description 04/23/2012 Orders Only [facility] ProviderAlicia MD [address] [place] [address] Social History Tobacco Use Types Packs/Day Years Used Date Smoking Tobacco: Never Assessed Sex and Gender Information Value Date Recorded Sex Assigned at Not on file 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
--- OUTSIDE RECORDS SUMMARY | 2024-10-14 09:13 | XMS_ITS | Clinical Summary ---
Author Organization [facility] Address [address] [address] Care Team Providers Care Family Consultant Name Role Phone Meliton Cruz DO Primary Care Provider [phone] Allergies No known active allergies Medications aspirin (ASPIR-81) 81 mg tablet take 1 tablet by oral route every day 0 0 7 Active felodipine (PLENDIL) 5 mg 24 hr tablet 0 Active omeprazole (PriLOSEC) 20 mg capsule TAKE 1 CAPSULE BY MOUTH DAILY BEFORE DINNER 2 Active Synthroid 137 mcg tablet Take 1 tablet (137 mcg total) by mouth machinist general before breakfast 4 Active atorvastatin (LIPITOR) 20 mg tabletIndicatio ns:Hyperlipidem ia LDL goal <70 TAKE 1 TABLET DAILY 90 tablet 3 4 Active Active Problems Problem Noted Date Diagnosed Date Obesity (BMI 30.0-34.9) 09/20/2024 Other fatigue 10/14/2018 Lipid screening 07/10/2017 Hyperlipidemia LDL goal <70 07/10/2017 Coronary artery disease of n ative artery of [place] heart with stable angina pectoris 09/05/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 09/05/2016 Simple obesity 06/27/2016 Overview (07/11/2016): Non morbid obesity due to excess calories Abnormal liver function tests 06/27/2016 Overview (07/11/2016): Elevated liver function tests Essential (primary) hypertension 06/27/2016 Overview (07/11/2016): Essential hypertension Resolved Problems Problem Noted Date Diagnosed Date Resolved Date Obesity (BMI 35.0-39.9 without comorbidity) 04/06/2018 09/20/2024 Encounters Date Type Department Care Team Description 09/20/2024 1:00 PM CDT Office Visit [facility] Cardiology [address] [place] [id number] Mike Griffiths MD Coronary artery disease of [place] artery of [place] heart with stable angina pectoris (Primary Dx); Essential (primary) hypertension; Hyperlipidemia LDL goal <70; Obesity (BMI 30.0-34.9) from Last 3 Months Medical History Medical History Date Comments Hx Other Medical excessive calci um levels Hypertension Hypertension Coronary artery disease invo lving [place] coronary artery of [place] heart without angina pectoris 09/05/2016 S/P CABG [...] on file 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 Gender Identity Not on file Sexual Orientation Not on file Obstetrics History Last Filed Vital Signs Vital Sign Reading Time Taken Comments Blood Pressure 128/76 09/20/2024 12:55 PM CDT Pulse 72 09/20/2024 12:55 PM CDT Temperature 36.4 C (97.5 F) 05/04/2020 12:50 PM CDT Respiratory Rate 15 12/21/2020 1:56 PM CDT Oxygen Saturation 95% 09/20/2024 12:55 PM CDT Inhaled Oxygen Concentration - - Weight 102.1 kg (225 lb) 09/20/2024 12:55 PM CDT Height 180.3 cm (5' 11) 09/20/2024 12:55 PM CDT Body Mass Index 31.38 09/20/2024 12:55 PM CDT Plan of Treatment Health Maintenance Due Date Last Done Comments Depression Screening 1940 DTaP/Tdap/Td Vaccine (1 - Tdap) 1953 Pneumococcal vaccine 65+ (1 of 2 - PCV) 1961 Zoster Vaccine (1 of 2) 1992 Well Visit 65+ 2007 Fall Risk Assessment 12/21/2021 12/21/2020, 10/28/2019, 04/21/2019 Influenza Vaccine (#1) 2024 9, 11/20/2017, 10/08/2016, Additional history exists Hepatitis B Screening Completed 04/18/2008 Abdominal Aortic Aneurysm (A AA) Screen Completed [...] OF EXAM: Jul 19 2016 1:55PM Acc#: [id number] ECT 0365 - CT Abd/Pel W PO [...] effusion. Electronically signed by: Sheri Gordon M.D. MEDICAL LIBRARIAN: PSC TRANSCRIBE DATE/TIME: Jul 19 2016 4:25P RADIOLOGIST: SHERI GORDON M.D. READ ON: Jul 19 2016 4:29P ORDERING DR: MARGARITA SHEN M.D. THIS DOCUMENT HAS BEEN ELECTRONICALLY SIGNED BY: SHERI GORDON M.D. ON: Jul 19 2016 4:25P Attending: LASHAY CRUZ Requesting: MARGARITA SHEN Requesting Attending Attending ID: [id number] Requesting ID: [id number] Report To 1 ID: [id number] Report To 1 Name: LASHAY CRUZ Report To 1 FAX: [phone] Report To 2 ID: Report To 2 Name: , Report To 2 FAX: -- NextGen Order #: Procedure Note Miscellaneous, Not In File / Provider, MD Alicia - 07/19/2016 DATE OF EXAM: Jul 19 2016 1:55PM Acc#: [id number] ECT 0365 - CT Abd/Pel W PO [...] effusion. Electronically signed by: Sheri Gordon M.D. MEDICAL LIBRARIAN: PSC TRANSCRIBE DATE/TIME: Jul 19 2016 4:25P RADIOLOGIST: SHERI GORDON M.D. READ ON: Jul 19 2016 4:29P ORDERING DR: MARGARITA SHEN M.D. THIS DOCUMENT HAS BEEN ELECTRONICALLY SIGNED BY: SHERI GORDON M.D. ON: Jul 19 2016 4:25P Attending: LASHAY CRUZ Requesting: MARGARITA SHEN Requesting Attending Attending ID: [id number] Requesting ID: [id number] Report To 1 ID: [id number] Report To 1 Name: LASHAY CRUZ Report To 1 FAX: [phone] Report To 2 ID: Report To 2 Name: , Report To 2 FAX: -- NextGen Order #: us Not In File Miscellaneous IMG CT PROCEDURES Ellen l Result from Last 3 Months or Most Recently Relevant to Health Maintenance Insurance [employer] SENIOR SUPPLEMENT [facility] MEDICARE [employer] SENIOR [employer]MENT Care Teams Family Consultant Relationship Specialty Start Date End Date Meliton Cruz DO [address] [facility] [address] [place] [address] PCP - General Internal Medicine 09/20/24
--- OUTSIDE RECORDS SUMMARY | 2024-10-14 09:13 | XMS_ITS | Clinical Summary ---
Author Organization [facility] Address [address] [place] [address] Care Team Providers Care Lead Software Architect Name Role Phone Unavailable Primary Care Provider Unavailabl e Source Comments [facility],non-owned Affiliates and Associated Physician Practices is amultiple site organization consisting of ambulatory clinics and hospital sitesin [place], [place], [place] and [place]. This disclosure is being madepursuant to the Care Everywhere program and may not contain all information available regarding this patient. Last updated 17.[facility] Medications * Be aware that medications may not be up to date on this document. Alwaysverify current medications with the patient. 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 Gender Identity Not on file Sexual Orientation [...] 4:57 PM CDT Height 180.3 cm (5' 11) 06/27/2016 4:57 PM CDT Body Mass Index 37.66 06/27/2016 4:57 PM CDT Plan of Treatment Health Maintenance Due Date Last Done Comments DTAP/TDAP/TD VACCINES (1 - Tdap) 1961 PNEUMOCOCCAL VACCINE 50+ (1 of 1 - PCV) 1992 ZOSTER VACCINE (1 of 2) 1992 Respiratory Syncytial Virus (RSV) Vaccine Pt: or over 60 yrs (1 - 1-dose 75+ series) 2017 COVID-19 VACCINE ( - 2023-2 5 season) 2023 DEPRESSION SCREENING 02/17/2024 INFLUENZA VACCINE (#1) 2024 HEPATITIS B VACCINE Aged Out No longe r eligible based on patient's age to complete this topic HIB VACCINE Aged Out No longer eligi ble based on patient's age to complete this topic HPV VACCINE Aged Out No longer eligi ble based on patient's age to complete this topic MENINGOCOCCAL (Group B) VACC INE SHARED DECISION-MAKING Aged Out No longer eligibl e based on patient's age to complete this topic MENINGOCOCCAL GROUPS A/C/Y/W VACCINE Aged Out No longer eligible b ased on patient's age to complete this topic Insurance MEDICARE
[2024-10-14 10:01] LABS: Free T4 Free Thyroxine 1.31 ng/dL (0.78-2.19)
[2024-10-14 10:14] LABS: Thyroid Stimulating Hormone 0.057 uIU/mL (0.465-4.680)
[2024-10-15 07:09] LABS: PSA, Free 1.95 ng/mL
== END 2024-10-14 09:00 | disposition home or self-care (01) ==
LOC: ANHLAB 09:00
PROVIDERS: PCP Internal Medicine; Visit Provider Internal Medicine
DX: R97.20 Elevated prostate specific antigen [PSA] (principal); E03.9 Hypothyroidism, unspecified; R53.1 Weakness
CPT/HCPCS: 36415; 84153; 84154; 84439; 84443